=== PATIENT | female | born 1975 | race Caucasian/White ===

== ENCOUNTER → 2016-11-01 | Outpatient (CLI) | payer BC ==
[2016-11-01 17:06] LABS: CHLORIDE,CL 104 mmol/L (98-110); SODIUM,NA 137 mmol/L (136-146)
== END ==
LOC: MW.CHFP 16:16
PROVIDERS: ATTEND Nurse Practitioner Family
DX: Z00.00 Encounter for general adult medical examination without abnormal findings (principal)
CPT/HCPCS: 36415; 80053; 84443; 85027